=== PATIENT | male | born 1995 | race Caucasian/White ===

== ENCOUNTER 2017-10-24 12:44 | Emergency (ER) | payer BC ==
--- NOTE | 2017-10-24 13:14 | EDM.PDOC ---
ED HPI GENERAL MEDICAL PROBLEM - General Chief Complaint: Respiratory Problem Stated Complaint: COLD AND COUGHING Time Seen by Provider: 10/24/17 12:46 Source of Information: Reports: Patient History Limitations: Reports: No Limitations - History of Present Illness INITIAL COMMENTS - FREE TEXT/NARRATIVE: History of present illness: []Patient's had 2 days of cough fevers chills and left lower chest pain. Patient has had pneumonia in the past and feels that the same. Patient denies any trauma or shortness of breath. Review of systems: As per history of present illness and below otherwise all systems reviewed and negative. Past medical history: As per history of present illness and as reviewed below otherwise noncontributory. Surgical history: As per history of present illness and as reviewed below otherwise noncontributory. Social history: No reported history of drug or alcohol abuse. Family history: As per history of present illness and as reviewed below otherwise noncontributory. Physical exam: General: Well developed, well nourished in NAD HEENT: Atraumatic, normocephalic, pupils reactive, negative for conjunctival pallor or scleral icterus, mucous membranes moist, throat clear, neck supple, nontender, trachea midline. Lungs: Clear to auscultation, breath sounds equal bilaterally, chest nontender. No chest wall tenderness, no rhonchi or wheezing and no accessory muscle use Heart: S1S2, regular, negative for clicks, rubs, or JVD. Abdomen: Soft, nondistended, nontender. Negative for masses or hepatosplenomegaly. Negative for costovertebral tenderness. Pelvis: Stable nontender. Genitourinary: Deferred. Rectal: Deferred. Extremities: Atraumatic, negative for cords or calf pain. Neurovascular unremarkable. Neuro: Awake, alert, oriented. Cranial nerves II through XII unremarkable. Cerebellum unremarkable. Motor and sensory unremarkable throughout. Exam nonfocal. Diagnostics: []Chest x-ray showing a left lower lobe pneumonia Therapeutics: []Ceftriaxone IM ED Impression: []Left lower lobe pneumonia Plan: []Zithromax and albuterol follow-up with PMD as directed and if symptoms worsen or change Definitive disposition and diagnosis as appropriate pending reevaluation and review of above. body aches Pain Score (Numeric/FACES): 9 - Related Data Allergies Allergy/AdvReac Type Severity Reaction Status Date / Time No Known Allergies Allergy Verified 10/24/17 12:59 Home Meds: Home Meds Albuterol Sulfate [Ventolin Hfa] 8 gm IH Q4HR #1 hfa.aer.ad 10/24/17 [Rx] Azithromycin [IJD: Azithromycin] 250 mg PO DAILY #6 tab 10/24/17 [Rx] Past Medical History - Past Health History Medical/Surgical History: Denies Medical/Surgical History Social & Family History - Family History Family Medical History: Noncontributory - Tobacco Use Smoking Status *Q: Current Every Day Smoker Years of Tobacco use: 8 Packs/Tins Daily: 0.5 - Alcohol Use Days Per Week of Alcohol Use: 4 Number of Drinks Per Day: 5 Total Drinks Per Week: 20 - Recreational Drug Use Recreational Drug Use: No ED ROS GENERAL - Review of Systems Review Of Systems: See Below (See history of present illness) ED EXAM, GENERAL - Physical Exam Exam: See Below (See history of present illness) Course - Vital Signs Last Recorded V/S: Last Vital Signs Temp 99.3 F 10/24/17 12:59 Pulse 126 H 10/24/17 12:59 Resp 18 10/24/17 12:59 BP 141/67 H 10/24/17 12:59 Pulse Ox 95 10/24/17 12:59 - Orders/Labs/Meds Orders: Active Orders 24 hr Category Date Time Status Chest 2V [CR] Stat Exams 10/24/17 13:14 Taken Meds: Medications Discontinued Medications Generic Name Dose Route Start Last Admin Trade Name Freq PRN Reason Stop Dose Admin Ceftriaxone Sodium 1,000 mg/ 4 mls @ 4 mls/sec 10/24/17 13:35 10/24/17 13:44 Lidocaine HCl IM 10/24/17 13:36 4 mls/sec ONETIME ONE Administration Departure - Departure Time of Disposition: 13:45 Disposition: Home, Self-Care 01 Condition: Good Clinical Impression: Left lower lobe pneumonia Qualifiers: Pneumonia type: due to unspecified organism Qualified Code(s): J18.1 - Lobar pneumonia, unspecified organism - Discharge Information Prescriptions: Albuterol Sulfate [Ventolin Hfa] 8 gm IH Q4HR #1 hfa.aer.ad Azithromycin [IJD: Azithromycin] 250 mg PO DAILY #6 tab Referrals: PCP,None [Primary Care Provider] - Forms: ED Department Discharge Additional Instructions: The following information is given to patients seen in the emergency department who are being discharged to home. This information is to outline your options for follow-up care. We provide all patients seen in our emergency department with a follow-up referral. The need for follow-up, as well as the timing and circumstances, are variable depending upon the specifics of your emergency department visit. If you don't have a primary care physician on staff, we will provide you with a referral. We always advise you to contact your personal physician following an emergency department visit to inform them of the circumstance of the visit and for follow-up with them and/or the need for any referrals to a consulting specialist. The emergency department will also refer you to a specialist when appropriate. This referral assures that you have the opportunity for follow-up care with a specialist. All of these measure are taken in an effort to provide you with optimal care, which includes your follow-up. Under all circumstances we always encourage you to contact your private physician who remains a resource for coordinating your care. When calling for follow-up care, please make the office aware that this follow-up is from your recent emergency room visit. If for any reason you are refused follow-up, please contact the [facility] at and asked to speak to the emergency department charge nurse. Albuterol as directed follow-up with PMD as needed [facility] [address] [place] [id number] - My Orders Last 24 Hours: My Active Orders 10/24/17 13:14 Chest 2V [CR] Stat - Assessment/Plan Last 24 Hours: My Active Orders 10/24/17 13:14 Chest 2V [CR] Stat
[2017-10-24] MEDS ORDERED: cefTRIAXone 1,000 MG in Lidocaine 1% 4 ML IM ONE (13:35)
--- NOTE | 2017-10-24 16:28 | CR ---
EXAM DATE: 10/24/17 PATIENT'S AGE: 22 Patient: CANDIDO URBINA Facility: [place], [place] Site . Site : 1995 Study: XRay Chest [id number]/9/2018 1:29:17 PM Ordering Physician: Fady Davila Final Report: INDICATION: Chest pain and shortness of breath TECHNIQUE: Chest 2 views COMPARISON: None FINDINGS: Cardiovascular and mediastinum: Heart size and vasculature are normal in caliber and appearance. Lungs and pleural spaces: Airspace infiltrate is present in the lingula. Remainder of the lungs are clear. Bones and soft tissues: No significant findings. IMPRESSION: Lingular pneumonia. Dictated by Long Howard MD @ 10/24/2017 1:55:09 PM Dictated by: Long Howard MD @ 10/24/2017 13:55:12 (Electronic Signature) Report Signed by Proxy. [facility]
== END 2017-10-24 13:59 | disposition home or self-care (01) ==
LOC: MW.ED 12:44
DX: J18.9 Pneumonia, unspecified organism (principal); F17.210 Nicotine dependence, cigarettes, uncomplicated; Z79.2 Long term (current) use of antibiotics
CPT/HCPCS: 71046; 96372; 99283; J0696